=== PATIENT | female | born 1960 | race Caucasian/White ===

== ENCOUNTER → 2024-03-13 08:52 | Outpatient (REF) | payer MEDICARE, OTHER, SELFPAY ==
[2024-03-13 10:34] LABS: % Basophils 0.7 % (0-2); % Immature Granulocytes 0.2 % (0-0.5); % Lymphocytes 25.8 % (20.5-51.1); % Monocytes 7.5 % (1.7-9.3); % Neutrophils 61.8 % (42.2-75.2); Absolute Eosinophils 0.2 10^3/uL (0-0.7); Absolute Lymphocytes 1.5 10^3/uL (1.2-3.4); Absolute Monocytes 0.4 10^3/uL (0.1-0.6); Absolute Neutrophils 3.5 10^3/uL (1.4-6.5); Hematocrit 35.6 % (37.0-47.0); Hemoglobin 11.6 g/dL (12.0-16.0); Mean Corp Hgb Conc. 32.6 g/dL (33.0-37.0); Mean Corpuscular Hgb 29.1 pg (27.0-31.0); Mean Corpuscular Volume 89.4 fL (81.0-99.0); Mean Platelet Volume 9.2 fL (7.4-10.4); Nucleated Red Blood Cells % 0 %; Platelet Count 455 10^3/uL (130-400); Red Blood Cell Count 3.98 10^6/uL (4.20-5.40); Red Cell Dist. Width 12.2 % (11.5-14.5); White Blood Cell Count 5.7 10^3/uL (4.8-10.8)
[2024-03-13 10:57] LABS: ALT (SGPT) 21 U/L (0-35); AST (SGOT) 32 U/L (14-36); Albumin 4.2 g/dl (3.5-5.0); Alkaline Phosphatase 102 U/L (38-126); Blood Urea Nitrogen 16 mg/dl (7-17); Calcium 9.9 mg/dl (8.4-10.2); Carbon Dioxide 31 mmol/L (22-30); Chloride 104 mmol/L (98-107); Glucose 85 mg/dl (70-99); HDL Cholesterol 70 mg/dl; LDL Cholesterol, Calculated 87 mg/dl; Potassium 4.7 mmol/L (3.5-5.1); Sodium 136 mmol/L (135-145); Total Bilirubin 0.4 mg/dl (0.2-1.3); Total Cholesterol 173 mg/dl (50-199); Total Protein 6.8 g/dl (6.3-8.2); Triglyceride 80 mg/dl (10-149); Very Low Density Lipoprotein 16 mg/dl (0-30); eGFR > 60.00
[2024-03-15 12:07] LABS: Iron 92 ug/dl (37-170)
[2024-03-15 12:18] LABS: Percent Saturation 25 % (20-50); Total Iron Binding Capacity 358 ug/dl (265-497)
[2024-03-15 17:04] LABS: Folate 10.8 ng/ml (2.76-20); Vitamin B12 339 pg/ml (239-931)
== END ==
LOC: REG 08:52
PROVIDERS: ATTENDING PHYSICIAN Family Medicine
DX: D63.8 Anemia in other chronic diseases classified elsewhere (principal); Z13.220 Encounter for screening for lipoid disorders
CPT/HCPCS: 36415; 80053; 80061; 82607; 82746; 83540; 83550; 85025

== ENCOUNTER → 2025-05-18 09:20 | Outpatient (REF) | payer MEDICARE, OTHER, SELFPAY ==
[2025-05-18 11:12] LABS: Hematocrit 36.8 % (37.0-47.0); Hemoglobin 12.0 g/dL (12.0-16.0); Mean Corp Hgb Conc. 32.6 g/dL (33.0-37.0); Mean Corpuscular Volume 91.3 fL (81.0-99.0); Nucleated Red Blood Cells % 0 %; Platelet Count 296 10^3/uL (130-400); Red Cell Dist. Width 12.8 % (11.5-14.5)
[2025-05-18 11:33] LABS: ALT (SGPT) 22 U/L (0-35); AST (SGOT) 34 U/L (14-36); Albumin 4.8 g/dl (3.5-5.0); Alkaline Phosphatase 85 U/L (38-126); Blood Urea Nitrogen 19 mg/dl (7-17); Calcium 9.7 mg/dl (8.4-10.2); Carbon Dioxide 26 mmol/L (22-30); Chloride 109 mmol/L (98-107); Glucose 87 mg/dl (70-99); HDL Cholesterol 83 mg/dl; Iron 85 ug/dl (37-170); LDL Cholesterol, Calculated 96 mg/dl; Potassium 4.8 mmol/L (3.5-5.1); Sodium 141 mmol/L (135-145); Total Protein 7.1 g/dl (6.3-8.2); Very Low Density Lipoprotein 15 mg/dl (0-30); eGFR > 60.00
[2025-05-18 11:42] LABS: Total Iron Binding Capacity 397 ug/dl (265-497)
[2025-05-18 12:04] LABS: Vitamin B12 250 pg/ml (239-931)
== END ==
LOC: REG 09:20
PROVIDERS: ATTENDING PHYSICIAN Family Medicine
DX: F41.9 Anxiety disorder, unspecified (principal); F51.04 Psychophysiologic insomnia; M41.124 Adolescent idiopathic scoliosis, thoracic region; D63.8 Anemia in other chronic diseases classified elsewhere; E53.8 Deficiency of other specified B group vitamins; Z13.220 Encounter for screening for lipoid disorders
CPT/HCPCS: 36415; 80053; 80061; 82607; 83540; 83550; 85025

== ENCOUNTER → 2025-10-11 07:58 | Outpatient (REF) | payer MEDICARE, OTHER, SELFPAY | LOC: WDC 07:58 | PROVIDERS: ATTENDING PHYSICIAN Family Medicine | DX: Z12.31 Encounter for screening mammogram for malignant neoplasm of breast (principal) | CPT/HCPCS: 77063; 77067 ==